=== PATIENT | male | born 1970 | race Caucasian/White ===

== ENCOUNTER 2019-03-22 08:53 | Observation (INO) ==
[2019-03-22] MEDS ORDERED: ASPIRIN PO ONE (09:10)
[2019-03-22] MEDS ORDERED: ASPIRIN ONE (09:11)
--- NOTE | 2019-03-22 09:23 | PROVIDER DOCUMENTATION ---
HPI-Chest Pain - General Chief Complaint: Chest Pain Stated Complaint: CHEST PAIN Time Seen by Provider: 03/22/19 08:59 Source: patient Allergies/Adverse Reactions: Patient Allergies Allergy/AdvReac Type Severity Reaction Status Date / Time morphine Allergy Unknown Verified 03/22/19 10:01 Home Medications: Home Medication List Medication Instructions Recorded Confirmed Last Taken Type Amlodipine Besylate 10 mg PO DAILY 03/22/19 03/22/19 03/22/19 08:00 History Aspirin [Aspir-Low] 81 mg PO DAILY 03/22/19 03/22/19 03/22/19 08:00 History Clonidine HCl 0.1 mg PO DAILY 03/22/19 03/22/19 03/22/19 08:00 History Dexlansoprazole [Dexilant] 60 mg PO DAILY 03/22/19 03/22/19 03/22/19 08:00 History Metoprolol Succinate 50 mg PO DAILY 03/22/19 03/22/19 03/22/19 08:00 History Ranolazine [Ranolazine ER] 1,000 mg PO BID 03/22/19 03/22/19 03/22/19 08:00 Hi story Ticagrelor [Brilinta] 90 mg PO DAILY 03/22/19 03/22/19 03/22/19 08:00 History - History of Present Illness-CP Nature of Presenting Problem: 48yom present to ER with c/o chest pain onset this morning upon wakening. Pt reports he had a stent placed in October at [facility]. Pt currently on Brilinta. Pt states his BP has been high recently and his PCP increased his meds. Pt reports some SOB. States he felt clammy at time of onset. denies nv. Pt nontoxic in appearance. at bedside. Location: reports: central Chest Pain Radiation: reports: no radiation Quality of Pain: reports: pressure, tightness Onset/Duration: this morning Timing: still present Associated Symptoms: reports: shortness of breath. denies: diaphoresis, fever/chills, nausea, syncope, vomiting Nitro Today/Relief: 0.4 mg x 2, provided by ED, mild relief Aspirin Treatment Today: 325 mg x 1, provided by ED Review of Systems - Adult - REVIEW OF SYSTEMS - ADULT Constitutional: reports: no symptoms reported. denies: fever Eyes: reports: no symptoms reported Ears, Nose, Mouth & Throat: reports: no symptoms reported Cardiovascular: reports: see HPI, chest pain. denies: edema, palpitations Respiratory: reports: no symptoms reported, shortness of breath. denies: cough, wheezing Gastrointestinal: reports: no symptoms reported. denies: nausea, vomiting Genitourinary: reports: no symptoms reported Musculoskeletal: reports: no symptoms reported Integumentary: reports: no symptoms reported Neurological: reports: no symptoms reported. denies: dizziness/vertigo Psychiatric: reports: no symptoms reported Endocrine: reports: no symptoms reported Hematologic/Lymphatic: reports: no symptoms reported Allergic/Immunologic: reports: no symptoms reported All Other Systems: Reviewed and Negative Past History - Adult - PAST MEDICAL HISTORY-ADULT Review of Records: reports: Old Records Reviewed, Nursing Assessment Review, Medications Reviewed, Social history reviewed & non-contributory. Major Childhood Illnesses: reports: denies history Cardiovascular: reports: HTN Respiratory: reports: asthma Gastrointestinal: reports: denies history Obstetrical/Gynecological: reports: denies history Genitourinary: reports: denies history Musculoskeletal: reports: denies history Neurological: reports: denies history Endocrine/Immune: reports: Diabetes Other Conditions: reports: denies history - PRIOR SURGERIES/PROCEDURES Surgical/Procedure History: reports: cholecystectomy - IMMUNIZATION STATUS Childhood Immunizations: See Nurse Assessment Flu Vaccine: See Nurse Assessment - FAMILY HISTORY Family History: reviewed, not pertinent Physical Exam-General - PHYSICAL EXAM-ADULT Initial Vital Signs Reviewed: Yes - CONSTITUTIONAL General Appearance: alert, no apparent distress - HEAD, EARS, NOSE, MOUTH & THROAT HENMT: moist mucous membranes - NECK Neck: full range of motion, supple, normal inspection - RESPIRATORY Respiratory: lungs clear, normal breath sounds, no respiratory distress, no accessory muscle use - CARDIOVASCULAR Cardiovascular: regular rate, rhythm, no edema - GASTROINTESTINAL (ABDOMEN) Abdominal Exam: normal bowel sounds, non tender, soft - MUSCULOSKELETAL Back Exam: normal inspection Extremity: normal range of motion, normal gait, normal inspection, no pedal edema - SKIN Integumentary: normal color, warm/dry - NEUROLOGIC Neurologic: grossly normal - PSYCHIATRIC Psych/Mental Status: normal mood/affect, oriented x 3 - HEART Score HEART Score: History: Moderately Suspicious HEART Score: ECG: Normal HEART Score: Age: 45-65 Years HEART Score: Risk Factors for Atherosclerotic Disease: 1 or 2 Risk Factors HEART Score: Troponin: < or = Normal Limit Total HEART Score:: 3 Progress - PLAN OF CARE/RESULTS Progress/Plan/Lab Results: Vital Signs - 8 hr 03/22/19 08:55 03/22/19 10:02 Temperature 97.8 F Pulse Rate 85 91 H Respiratory Rate 25 H 18 Blood Pressure 175/123 151/116 O2 Sat by Pulse Oximetry 97 94 L Laboratory Results - last 24 hr 03/22/19 03/22/19 03/22/19 09:08 09:08 09:42 WBC 7.73 RBC 5.31 Hgb 15.5 Hct 48.3 MCV 91.0 MCH 29.2 MCHC 32.1 L RDW Std Deviation 12.7 Plt Count 256 MPV 9.6 Immature Gran % (Auto) 0.3 Neut % (Auto) 66.9 Lymph % (Auto) 20.8 [place] % (Auto) 8.4 Eos % (Auto) 3.0 Baso % (Auto) 0.6 Immature Gran # (Auto) 0.02 Neut # (Auto) 5.17 Lymph # (Auto) 1.61 [place] # (Auto) 0.65 H Eos # (Auto) 0.23 Baso # (Auto) 0.05 PT 12.9 INR 0.93 PTT (Actin FS) 31.9 Sodium Potassium Chloride Carbon Dioxide Anion Gap BUN Creatinine Estimated GFR/1.73 m2 BUN/Creatinine Ratio Glucose Calculated Osmolality Calcium Total Bilirubin AST ALT Alkaline Phosphatase Creatine Kinase 139 Troponin T Total Protein Albumin Globulin Albumin/Globulin Ratio 03/22/19 03/22/19 09:42 09:42 WBC RBC Hgb Hct MCV MCH MCHC RDW Std Deviation Plt Count MPV Immature Gran % (Auto) Neut % (Auto) Lymph % (Auto) [place] % (Auto) Eos % (Auto) Baso % (Auto) Immature Gran # (Auto) Neut # (Auto) Lymph # (Auto) [place] # (Auto) Eos # (Auto) Baso # (Auto) PT INR PTT (Actin FS) Sodium 142 Potassium 4.2 Chloride 107 Carbon Dioxide 23 L Anion Gap 12 BUN 10 Creatinine 0.9 Estimated GFR/1.73 m2 > 60 BUN/Creatinine Ratio 11 Glucose 109 H Calculated Osmolality 283 Calcium 9.3 Total Bilirubin 0.50 AST 16 ALT 19 Alkaline Phosphatase 99 Creatine Kinase Troponin T < 0.010 Total Protein 6.6 Albumin 4.4 Globulin 2.0 Albumin/Globulin Ratio 2.0 Orders Category Date Time Status Nursing- Obtain EKG ONCE Care 03/22/19 09:10 Active CHEST-2 VIEWS [RAD] Stat Exams 03/22/19 09:10 Completed CBC WITH DIFF [HEME] Stat Lab 03/22/19 09:08 Completed CK PROFILE [SP CHEM] Stat Lab 03/22/19 09:42 Completed COMPREHENSIVE METABOLIC PANEL [CHEM] Stat Lab 03/22/19 09:42 Completed D-DIMER [COAG] Stat Lab 03/22/19 09:08 Received PROTIME WITH INR [COAG] Stat Lab 03/22/19 09:08 Completed PTT [COAG] Stat Lab 03/22/19 09:08 Completed TROPONIN T Stat Lab 03/22/19 09:42 Completed Aspirin Med 03/22/19 09:11 Discontinued 325 mg .ROUTE .STK-MED ONE Aspirin Med 03/22/19 09:10 Discontinued 325 mg PO NOW ONE Nitroglycerin Sl [Nitroglycerin] Med 03/22/19 09:17 Active 0.4 mg SL Q5M PRN PRN EKG [EKG] Stat Ther 03/22/19 09:10 Draft Result Diagrams: 03/22/19 09:08 03/22/19 09:42 - REASSESSMENT Reassessment #1 Time Reassessed: 09:57 (BP 151/116 Pt states CP has eased a little after 1 nitro, will repeat dose.) Status: improving Reassessment #2 Time Reassessed: 10:28 (BP 147/108. Pt states no change in CP. Reviewed results thus far with pt. Will reassess and consider admission) Reassessment #3 Time Reassessed: 10:54 (No change in CP. Will call hospitalist to consider admission) Reassessment #4 Time Reassessed: 11:26 (pt and spouse made aware of admission status and agree to this.) - EKG 1 Time of EKG reading by physician:: 09:06 EKG Read and Signed by:: Yulia Ojeda EKG Interpretation (*Must complete 3 of following elements*): Normal Rate: 83 Rhythm: NSR - XRAY 1 XRAY Study: Chest Impression: See EMR Report (EXAM: CHEST-2 VIEWS INDICATION: cp TECHNIQUE: 2 views COMPARISON: 05/09/2016 FINDINGS: There is stable chronic elevation of the right hemidiaphragm. The lungs are grossly clear. There is no discrete pleural fluid collection or pneumothorax. The cardiac silhouette is borderline prominent but stable. Central vasculature is unremarkable. IMPRESSION: B orderline cardiomegaly. No definite acute chest pathology by plain radiograph. Electronically signed by Ollie Adams 03/22/2019 9:36 AM 03/22/19 0936 Interpreting Physician: Ollie Adams MD Dictated Date/Time: 03/22/19 0934) - CONSULTS/PCP/HOSPITALIST Notification #1 *Consult/PCP/Hospitalist*: Dr Reyna Time Discussed: 11:20 Consult Disposition: Will see in ED, Admit Departure - Departure Date of Disposition Decision: 03/22/19 Time of Disposition Decision: 11:26 DIAGNOSIS: Chest pain Qualifiers: Chest pain type: unspecified Qualified Code(s): R07.9 - Chest pain, unspecified Hypertension Qualifiers: Hypertension type: essential hypertension Qualified Code(s): I10 - Essential (primary) hypertension Disposition: ADMITTED INPATIENT 09 Certified Medical Emergency: Emergent Condition: Fair Referrals and Follow-Ups: Genaro Reyes MD [Primary Care Provider] - - Critical Care Note This patient required my direct & personal management of CC.: No Attestation - Physician/ KEVAN Attestation Patient care was provided by Advanced Practice Provider:: Yes Advanced Practice Provider:: Shalini Silva Advanced Practice Provider documentation review:: The Mid-level provider documentation, treatment plan and medical decision making was reviewed by the physician who agrees with all treatment and medical decision making by the [facility]. The physician spent face to face time with patient:: No Advanced Practice Provider documentation review:: Supervising physician onsite and consulted in the evaluation and care of this patient. The physician did not have a face to face encounter with the patient.
--- NOTE | 2019-03-22 09:38 | Diag Imaging Result Doc PS360 ---
EXAM: CHEST-2 VIEWS INDICATION: cp TECHNIQUE: 2 views COMPARISON: 05/09/2016 FINDINGS: There is stable chronic elevation of the right hemidiaphragm. The lungs are grossly clear. There is no discrete pleural fluid collection or pneumothorax. The cardiac silhouette is borderline prominent but stable. Central vasculature is unremarkable. IMPRESSION: Borderline cardiomegaly. No definite acute chest pathology by plain radiograph. Electronically signed by Ollie Adams 03/22/2019 9:36 AM
[2019-03-22 09:42] LABS: BASO# 0.05 X1000 (0.0-0.2); BASO% 0.6 % (0.0-0.8); EOS# 0.23 X1000 (0.0-0.7); HEMATOCRIT 48.3 % (42.0-52.0); HEMOGLOBIN 15.5 g/dL (14.0-18.0); IMM GRAN# 0.02 X1000 (0.0-0.04); IMM GRAN% 0.3 % (0.0-0.5); LYMPH# 1.61 X1000 (1.2-3.4); LYMPH% 20.8 % (20.5-51.1); MCH 29.2 PG (27-31); MCHC 32.1 g/dL (33-37); MONO# 0.65 X1000 (0.11-0.59); MONO% 8.4 % (1.7-9.3); MPV 9.6 FL (7.4-10.4); NEUT# 5.17 X1000 (1.4-6.5); NEUT% 66.9 % (42.2-75.2); PLT 256 X1000 (130-400); RBC 5.31 XMIL (4.7-6.1); RDW 12.7 % (11.5-14.5); WBC 7.73 X1000 (4.8-10.8)
[2019-03-22] MEDS: NITROGLYCERIN SL PRN ×2 (09:43→09:55)
--- NOTE | 2019-03-22 09:59 | EKG Report ---
Test Performed on : 03/22/2019 09:06:01 AM Test Reason : cp Blood Pressure : / mmHG Vent. Rate : 083 BPM Atrial Rate : 083 BPM P-R Int : 134 ms QRS Dur : 078 ms QT Int : 388 ms P-R-T Axes : 019 -24 023 degrees QTc Int : 455 ms Normal sinus rhythm. Normal ECG When compared with ECG of 19-MAR-2016 14:11, No significant change was found Confirmed by Oliver Villalba MD ([id number]), department editor Fabiana Adams ([id number]) on 06/14/2019 12:31:45 PM
[2019-03-22 10:15] LABS: AGAP 12; ALBUMIN 4.4 g/dL (3.5-5.0); ALKALINE PHOSPHATASE 99 U/L (32-122); BUN 10 mg/dL (8-22); CALCIUM 9.3 mg/dL (8.8-10.2); CHLORIDE 107 mmol/L (98-107); COSMO 283; CREATININE 0.9 mg/dL (0.7-1.2); ESTIMATED GFR > 60; GLUCOSE 109 mg/dL (70-104); GOT 16 U/L (10-34); GPT 19 U/L (10-44); POTASSIUM 4.2 mmol/L (3.5-5.1); SODIUM 142 mmol/L (136-145); TCO2 23 mmol/L (25-35); TOTAL PROTEIN 6.6 g/dL (6.3-8.3)
[2019-03-22 10:27] LABS: INR 0.93; PROTIME 12.9 Seconds (11.0-16.0)
[2019-03-22 10:28] LABS: PTT 31.9 Seconds (22.3-41.8)
[2019-03-22] MEDS ORDERED: ZOFRAN IV PRN (12:05)
[2019-03-22] MEDS: TYLENOL PO PRN (16:16)
--- NOTE | 2019-03-22 17:18 | HISTORY AND PHYSICAL ---
CHIEF COMPLAINT: Chest pain. HISTORY OF PRESENT ILLNESS: This is a 48-year-old male with known history of CAD and hypertension, who came in with the onset of chest pain this morning. It was midsternal to the left, similar to previous pain equivalent, anginal equivalent, just pretty severe pain, did not radiate. The patient is a cardiac patient who had 1 stent placed in the LAD and has two 50% lesions otherwise. He is currently on Brilinta. He reports some shortness of breath and felt clammy, nontoxic. His workup in the ER really was unremarkable. He said he could not get pain free. Chest pain started around 6:30 in the morning. His blood pressure was high, 174/124. Apparently Dr. Sprague had increased his blood pressure medication, which I think was his Toprol, to 50. The patient did have some pain radiation to his neck. He is now pain free. 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 He gets out of breath when he walks. He has bilateral leg pain. The patient placed in observation for chest pain. PAST MEDICAL HISTORY: Hypertension, CAD, GERD. PAST SURGICAL HISTORY: 1. Just the PCIs. 2. Cervical disk replacement. 3. Cholecystectomy. 4. Rotator cuff surgery. REVIEW OF SYSTEMS: Positive for palpitations, diaphoresis, clamminess. Negative for cough. SOCIAL HISTORY: No tobacco, ethanol, or drugs. 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 FAMILY HISTORY: Mother and father had CAD in their 40s. MEDICATIONS: He is on Tylenol 650, Norvasc 10, aspirin 81 daily, clonidine 0.1 daily, Dexilant 60 daily, Toprol 50 daily, nitroglycerin p.r.n., Zofran p.r.n., Ranexa 1 g b.i.d., Brilinta 90 daily. PHYSICAL EXAMINATION: VITAL SIGNS: Blood pressure is 146/93, heart rate is 70, respiratory rate 18, temperature 98.4 degrees, 99% on room air. GENERAL: Well-developed male, no acute distress. HEENT: Head exam: Normocephalic, atraumatic. Eye exam: Pupils equal, round, reactive to light. Extraocular movements were intact. Ear, nose and throat exam: He had moist mucous membranes. NECK: Supple. CARDIOVASCULAR: Regular rate and rhythm. PULMONARY: Bilateral breath sounds clear to auscultation. GASTROINTESTINAL: Soft, nontender, nondistended. Bowel sounds are positive. NEUROLOGICAL: Nonfocal. MUSCULOSKELETAL: 4/5 in all 4 extremities. DIAGNOSTIC STUDIES: Normal CBC, basic. EKG showed nonspecific ST changes. No major ST changes. Not a great baseline level. Chest x-ray was clear. ASSESSMENT: This is a 48-year-old male with history of coronary artery disease and hypertension, who came in for evaluation for atypical chest pain. 1. Chest pain, possible rule out acute coronary syndrome. We will continue to follow. We will get serial enzymes, echocardiogram, and cardiac stress test and consult Cardiology based on those findings. 2. Rule out congestive heart failure. We will get chest x-ray, proBNP, echocardiogram. 3. Hypertension. We will continue to adjust his medications and monitor. DISPOSITION: Anticipate discharge within the next 24 hours. cc: Alfred Reyna MD
--- NOTE | 2019-03-22 18:11 | EKG Report ---
Test Performed on : 03/22/2019 4:00:43 PM Test Reason : CHEST PAIN Blood Pressure : / mmHG Vent. Rate : 065 BPM Atrial Rate : 065 BPM P-R Int : 140 ms QRS Dur : 080 ms QT Int : 408 ms P-R-T Axes : 038 -27 043 degrees QTc Int : 424 ms Normal sinus rhythm. Normal ECG When compared with ECG of 22-MAR-2019 09:06, (Unconfirmed) No significant change was found Confirmed by Oliver Villalba MD ([id number]) on 03/25/2019 1:58:14 AM
[2019-03-22] MEDS: RANEXA PO SCH (21:05)
[2019-03-23] MEDS: DEXILANT PO SCH (06:02)
[2019-03-23 06:36] LABS: BASO# 0.05 X1000 (0.0-0.2); BASO% 0.8 % (0.0-0.8); EOS# 0.27 X1000 (0.0-0.7); EOS% 4.1 % (0.0-10.0); HEMATOCRIT 45.3 % (42.0-52.0); HEMOGLOBIN 14.4 g/dL (14.0-18.0); IMM GRAN# 0.01 X1000 (0.0-0.04); IMM GRAN% 0.2 % (0.0-0.5); LYMPH# 1.79 X1000 (1.2-3.4); LYMPH% 27.1 % (20.5-51.1); MCH 29.1 PG (27-31); MCHC 31.8 g/dL (33-37); MCV 91.5 FL (81-99); MONO# 0.69 X1000 (0.11-0.59); MONO% 10.5 % (1.7-9.3); MPV 9.5 FL (7.4-10.4); NEUT# 3.79 X1000 (1.4-6.5); NEUT% 57.3 % (42.2-75.2); PLT 214 X1000 (130-400); RBC 4.95 XMIL (4.7-6.1); RDW 12.7 % (11.5-14.5)
--- NOTE | 2019-03-23 06:37 | EKG Report ---
Test Performed on : 03/23/2019 05:48:13 AM Test Reason : cp Blood Pressure : / mmHG Vent. Rate : 058 BPM Atrial Rate : 058 BPM P-R Int : 150 ms QRS Dur : 082 ms QT Int : 460 ms P-R-T Axes : 029 -07 029 degrees QTc Int : 451 ms Sinus bradycardia. Otherwise normal ECG When compared with ECG of 22-MAR-2019 16:00, (Unconfirmed) No significant change was found Confirmed by Oliver Villalba MD ([id number]), script editor Fabiana Adams ([id number]) on 06/14/2019 12:31:48 PM
[2019-03-23 06:56] LABS: AGAP 11; BUN 10 mg/dL (8-22); CALCIUM 9.1 mg/dL (8.8-10.2); CHLORIDE 107 mmol/L (98-107); CHOLESTEROL 165 mg/dL (0-200); COSMO 283; CREATININE 0.8 mg/dL (0.7-1.2); ESTIMATED GFR > 60; GLUCOSE 117 mg/dL (70-104); HDL 44 mg/dL (35-55); LDL 105 mg/dL; POTASSIUM 4.2 mmol/L (3.5-5.1); SODIUM 142 mmol/L (136-145); TCO2 24 mmol/L (25-35); TRIGLYCERIDES 80 mg/dL (39-160); VLDL 16 mg/dL
[2019-03-23] MEDS ORDERED: BRILINTA PO SCH (09:00)
[2019-03-23] MEDS ORDERED: CATAPRES PO SCH (09:00)
[2019-03-23] MEDS: TOPROL XL PO SCH (11:03)
[2019-03-23] MEDS: NORVASC PO SCH (11:03)
--- NOTE | 2019-03-23 11:22 | GRADED EXERCISE REPORT ---
DATE: 03/23/2019 STUDY PERFORMED: Lexiscan. ORDERING PHYSICIAN: Dr. Alfred Reyna. INDICATION: Chest pain with known coronary artery disease. SUMMARY: Initial heart rate 75, blood pressure initially 170/114. He has not had any of his morning medications. Initial EKG was really nonspecific. He underwent infusion of 0.4 mg of regadenoson Lexiscan. He did develop chest pressure during the test, but there were no significant ST changes. Chest pain was pretty much relieved by the time the test was completed. The test was felt to be clinically positive, but electrically negative. Peak heart rate was 109, peak blood pressure 184/116. He was already hypertensive, so there was no hypertensive response. Myocardial perfusion will be reported separately. cc: Alfred Reyna MD
[2019-03-23] MEDS: RANEXA PO SCH ×2 (12:21→21:39)
[2019-03-23] MEDS: BRILINTA PO SCH ×2 (12:21→21:44)
[2019-03-23] MEDS: ASPIRIN EC PO SCH (12:21)
[2019-03-23] MEDS ORDERED: LEXISCAN ONE (12:50)
--- NOTE | 2019-03-23 17:58 | Diag Imaging Result Document ---
PROCEDURE NAME: MYOCARDIAL PERF SCAN, STR/REST - 03/23/2019 STUDY: Lexiscan sestamibi interpretation. SUMMARY: The patient was administered 17.1 mCi of technetium 99-m sestamibi, after which resting cardiac images were obtained. The patient was subsequently administered Lexiscan 0.4 mg intravenously, after which the heart rate went from 75 beats per minute to 109 beats per minute and the blood pressure went from 170/114 to 180/115. With Lexiscan, the patient reported chest discomfort. Following the administration of Lexiscan, the patient was administered 46.1 mCi of technetium-99m sestamibi, after which gated stress cardiac images were obtained. Baseline ECG demonstrated normal sinus rhythm and was within normal limits. With Lexiscan, the patient denied chest discomfort. Following the administration of Lexiscan, there were no diagnostic ST-segment changes. SPECT images were reconstructed in the short, horizontal, and vertical long axis. Review of these images demonstrated mildly diminished activity in the basal to mid inferior wall on stress images which appear similar on resting images. No significant reversibility is evident. Gated images demonstrate a calculated left ventricular ejection fraction of 59% with symmetrical wall motion/thickening. CONCLUSIONS: 1. Adequate response to Lexiscan. 2. The patient reported chest discomfort with Lexiscan. 3. Electrocardiographically there were no diagnostic ST-segment changes on ECG following administration of Lexiscan. 4. Lexiscan sestamibi images demonstrate fixed, mildly diminished activity in the basal to mid inferior wall with corresponding preserved regional wall motion, probably due to diaphragm attenuation artifact. There is no convincing scintigraphic evidence of inducible myocardial ischemia. Normal left ventricular systolic function demonstrated. cc: MD Alfred Rodriguez MD
[2019-03-23] MEDS: CATAPRES PO SCH (21:39)
[2019-03-23] MEDS: TYLENOL PO PRN (21:44)
[2019-03-24] MEDS: DEXILANT PO SCH (06:35)
[2019-03-24 07:10] VITALS: BP 127/92
[2019-03-24] MEDS: TOPROL XL PO SCH (09:04)
[2019-03-24] MEDS: NORVASC PO SCH (09:04)
[2019-03-24] MEDS: ASPIRIN EC PO SCH (09:04)
[2019-03-24] MEDS: CATAPRES PO SCH (09:04)
[2019-03-24] MEDS: BRILINTA PO SCH (09:04)
[2019-03-24] MEDS: RANEXA PO SCH (09:04)
--- NOTE | 2019-03-25 02:09 | ECHO REPORT ---
ORDER DATE: 03/23/2019 MEASUREMENTS: Septal thickness 1.2. Left ventricular internal diameter in diastole 5.2. Posterior wall thickness 1.2. Left ventricular internal diameter in systole 3.5. Aortic root 3.6. Left atrium 4.0. SUMMARY: 1. Technically difficult study due to very limited parasternal acoustic window quality. 2. Aortic valve is trileaflet and opens normally on 2-dimensional images. The peak gradient across the aortic valve is 12 mmHg. The aortic root is normal in size. There is linear echodensity in the proximal ascending aorta. This is not well-defined but possible aortic dissection cannot be excluded. Mitral and tricuspid valves are without evidence of structural abnormality while pulmonic valve is not well demonstrated. 3. Normal left ventricular chamber size with mild concentric left hypertrophy is demonstrated. The estimated left ejection fraction appears to be at least 55%. No regional wall motion abnormalities are evident. Doppler suggests grade 1 left ventricular diastolic dysfunction. Left atrium is borderline enlarged. The right atrium and right ventricle are normal in size with right ventricular systolic function. 4. No pericardial effusion. 5. Appearance of inferior vena cava suggests normal central venous pressure. CONCLUSIONS: 1. Technically difficult study. 2. No significant valvular abnormality. 3. Ill-defined linear echodensity in the anterior aspect of the proximal ascending aorta. Cannot exclude possible aortic dissection. Consider chest CT scan to further evaluate. 4. Mild concentric left hypertrophy with estimated left ventricular ejection fraction at least 55%. 5. Grade 1 left ventricular diastolic dysfunction. 6. Borderline left atrial enlargement. cc: MD Alfred Rodriguez MD
--- NOTE | 2019-03-25 02:31 | DISCHARGE SUMMARY ---
ADMISSION DATE: 03/22/2019 DISCHARGE DATE: 03/24/2019 DIAGNOSES: 1. Chest pain. 2. Hypertension. 3. History of coronary artery disease. 4. Gastroesophageal reflux disease. DIAGNOSTICS: 1. Chest x-ray revealed borderline cardiomegaly. No definite acute chest pathology. 2. Myocardial perfusion scan. Adequate response to Lexiscan. The patient reported chest discomfort with Lexiscan. Electrocardiographically, there were no diagnostic ST-segment changes on ECG following admission of Lexiscan. Gated images demonstrated a calculated left ventricular ejection fraction of 59% with symmetrical wall motion thickening. Lexiscan sestamibi images demonstrates fixed mildly diminished activity in the basal to mid inferior wall with corresponding preserved regional wall motion, probably due to diaphragm attenuation artifact. There is no convincing scintigraphic graphic evidence of inducible myocardial ischemia. Normal left ventricular systolic function is demonstrated. HOSPITAL COURSE: Mr. Mendiola presented to the emergency room complaining of midsternal chest pain. He ruled out by EKG and troponins. Lexiscan revealed no convincing scintigraphic evidence of inducible myocardial ischemia. He had no recurrence of chest pain while in the hospital and thankfully he is ready for discharge. They did report that had been having high blood pressure and pressures on admission were in the 150 to 170 over 116 to 123 range. Continuing his home medications, his morning blood pressure after admission was 140/102. After receiving his medications, pressures decreased to the 116 to 120 over 70 to 90 range. In reviewing his medications, the patient was taking clonidine 0.1 in the morning. We did increase clonidine 0.1 to b.i.d. and his morning pressure was 127/92. DISCHARGE PHYSICAL EXAMINATION: Cardiovascular: Regular rate and rhythm. S1 and S2 appreciated. Pulmonary: Breath sounds are clear with no increased work of breathing noted. Gastrointestinal: Abdomen is soft, nontender, nondistended with bowel sounds in all 4 quadrants. Neurologic: He is alert and oriented x3. DISCHARGE MEDICATIONS: 1. Brilinta 90 mg p.o. daily. 2. Ranolazine ER 1000 mg p.o. b.i.d. 3. Metoprolol succinate 50 mg p.o. daily. 4. Dexilant 60 mg p.o. daily. 5. Clonidine 0.1 mg p.o. b.i.d. 6. Aspirin 81 mg p.o. daily. 7. Norvasc 10 mg p.o. daily. FOLLOWUP: 1. Dr. Velez, his inclusion paraeducator. Follow-up with appointment as scheduled. 2. Dr. Genaro Reyes in 1 to 2 weeks. 3. The patient has been encouraged to call Dr. Velez's office today or in the morning to update him on hospitalization and events to verify follow-up. 4. He is being discharged home in stable condition with family members. TIME SPENT: This is a greater than 30 minute discharge. Dictated by JEFFERSON Christensen for Wilbur Wasserman MD cc: JEFFERSON Christensen MD Navdeep Mann David Francis, MD
--- NOTE | 2019-03-25 19:31 | DISCHARGE SUMMARY ---
ADMISSION DATE: 03/22/2019 DISCHARGE DATE: 03/24/2019 HOSPITAL COURSE: Patient seen and examined by myself. Full note dictated and discussed with nurse practitioner. On discharge, patient is awake, alert. He is in no current respiratory distress. Very pleasant. He is having no further chest pain. His GXT was affectively negative, although he does have a chronic scar. His blood pressures, although they have been elevated, they are much better after he started taking clonidine twice daily. Apparently, he was taking clonidine 2 times at home, but roughly within 4 hours of each other, and then was having rebound hypertension in the morning. Discussed with Mr. Mendiola, attempted to answer all of his questions, and therefore we will discharge him home. cc: Wilbur Wasserman MD
== END 2019-03-24 12:05 | disposition home or self-care (01) ==
LOC: P.ED 08:53 → P.MEDSURG 08:53 → SUATTDRO 11:47
PROVIDERS: ATTEND Family Medicine